=== PATIENT | female | born 1950 | race Caucasian/White ===

== ENCOUNTER 2019-04-22 16:32 | Inpatient (IN) | payer MEDICARE, MEDICAID ==
[2019-04-22 17:04] LABS: ADD MAN DIFF? NO
[2019-04-22] MEDS: KETOROLAC 15 MG INJ IV (17:06)
[2019-04-22] MEDS: ONDANSETRON 4 MG INJ IV (17:06)
[2019-04-22] MEDS: SOD CHLORIDE 0.9% 1,000 ML IV ×2 (17:06→22:29)
[2019-04-22 17:08] LABS: WHITE BLOOD COUNT 13.6 10^3/ul (4.8-10.8)
[2019-04-22 17:08] LABS: BASOPHILS % 0.3 % (0.0-2.0); EOSINOPHILS % 0.1 % (0.0-7.0); HEMATOCRIT 36.1 % (37.0-47.0); HEMOGLOBIN 11.4 g/dl (12.0-16.0); LYMPHOCYTES # 4.2 10^3/ul (0.8-2.9); LYMPHOCYTES % 30.7 % (15.0-51.0); MEAN CORPUSCULAR HEMOGLOBIN 26.4 pg (29.0-33.0); MEAN CORPUSCULAR HGB CONC 31.6 g/dl (32.0-37.0); MEAN CORPUSCULAR VOLUME 83.6 fl (82.0-101.0); MEAN PLATELET VOLUME 10.4 fl (7.4-10.4); MONOCYTE # 0.6 10^3/ul (0.3-0.9); MONOCYTES % 4.6 % (0.0-11.0); NEUTROPHIL # 8.7 10^3/ul (1.6-7.5); NEUTROPHILS % 63.9 % (39.0-77.0); PLATELET COUNT 122 10^3/UL (140-415); RED BLOOD COUNT 4.32 10^6/ul (4.20-5.40)
[2019-04-22 17:28] LABS: ALANINE AMINOTRANSFERASE 23 IU/L (13-69); ALBUMIN 3.9 g/dl (3.3-4.9); ALBUMIN/GLOBULIN RATIO 1.11; ALKALINE PHOSPHATASE 70 IU/L (42-121); ANION GAP 10 (5-13); ASPARTATE AMINO TRANSFERASE 29 IU/L (15-46); BILIRUBIN,INDIRECT 0.7 mg/dl (0-1.1); BILIRUBIN,TOTAL 0.7 mg/dl (0.2-1.3); BLOOD UREA NITROGEN 15 mg/dl (7-20); CALCIUM 8.6 mg/dl (8.4-10.2); CARBON DIOXIDE 25 mmol/L (21-31); CHLORIDE 101 mmol/L (97-110); CREATININE 0.78 mg/dl (0.44-1.00); Estimated GFR > 60 mL/min (>60); GLUCOSE 246 mg/dl (70-220); LIPASE 57 U/L (23-300); POTASSIUM 4.1 mmol/L (3.5-5.1); SODIUM 136 mmol/L (135-144); TOTAL PROTEIN 7.4 g/dl (6.1-8.1)
[2019-04-22] MEDS: CEFTRIAXONE 1 GM/50 ML (PMX) 50 ML IVPB (18:10)
[2019-04-22 19:17] LABS: ADD UMIC YES; UR ASCORBIC ACID 40 mg/dL (NEGATIVE); UR BILIRUBIN (Dip) NEGATIVE (NEGATIVE); UR BLOOD (Dip) 1+ mg/dL (NEGATIVE); UR CLARITY CLOUDY (CLEAR); UR COLOR YELLOW (YELLOW); UR GLUCOSE (Dip) NEGATIVE (NEGATIVE); UR KETONES (Dip) 1+ mg/dL (NEGATIVE); UR LEUKOCYTE ESTERASE (Dip) 3+ Leu/ul (NEGATIVE); UR NITRITE (Dip) POSITIVE (NEGATIVE); UR RBC 1 /HPF (0-5); UR SPECIFIC GRAVITY (Dip) 1.011 (1.003-1.030); UR TOTAL PROTEIN (Dip) 2+ mg/dl (NEGATIVE); UR UROBILINOGEN (Dip) NEGATIVE (NEGATIVE); UR WBC 10 /HPF (0-5)
[2019-04-22] MEDS ORDERED: NACL 0.9% 3 ML SYG IV (22:30)
[2019-04-22] MEDS ORDERED: ALBUTEROL 0.083% (NEB) 2.5 MG/3 ML AMP NEB (22:30)
[2019-04-22] MEDS ORDERED: HYDROCODONE/APAP (5/325) TAB PO (22:30)
[2019-04-22] MEDS ORDERED: ONDANSETRON 4 MG INJ IV (22:30)
[2019-04-23] MEDS: HYDROCODONE/APAP (5/325) TAB PO (02:36)
[2019-04-23] MEDS: ACETAMINOPHEN 325 MG TAB PO ×3 (02:40→21:40)
[2019-04-23 05:33] LABS: ABNORMAL IP MESSAGE 1; HEMATOCRIT 32.3 % (37.0-47.0); HEMOGLOBIN 10.1 g/dl (12.0-16.0); MEAN CORPUSCULAR HEMOGLOBIN 26.6 pg (29.0-33.0); MEAN CORPUSCULAR HGB CONC 31.3 g/dl (32.0-37.0); MEAN CORPUSCULAR VOLUME 85.2 fl (82.0-101.0); MEAN PLATELET VOLUME 10.7 fl (7.4-10.4); PLATELET COUNT 121 10^3/UL (140-415); RED BLOOD COUNT 3.79 10^6/ul (4.20-5.40); RED CELL DISTRIBUTION WIDTH 14.9 % (11.5-14.5)
[2019-04-23 05:33] LABS: WHITE BLOOD COUNT 15.5 10^3/ul (4.8-10.8)
[2019-04-23 05:43] LABS: HEMOGLOBIN A1C 6.5 % (0-5.9)
[2019-04-23 06:00] LABS: ALANINE AMINOTRANSFERASE 25 IU/L (13-69); ALBUMIN/GLOBULIN RATIO 1.03; ALKALINE PHOSPHATASE 49 IU/L (42-121); ANION GAP 6 (5-13); ASPARTATE AMINO TRANSFERASE 25 IU/L (15-46); BILIRUBIN,INDIRECT 0.4 mg/dl (0-1.1); BILIRUBIN,TOTAL 0.4 mg/dl (0.2-1.3); BLOOD UREA NITROGEN 15 mg/dl (7-20); CALCIUM 7.7 mg/dl (8.4-10.2); CARBON DIOXIDE 26 mmol/L (21-31); CHLORIDE 106 mmol/L (97-110); CREATININE 0.69 mg/dl (0.44-1.00); Estimated GFR > 60 mL/min (>60); GLUCOSE 118 mg/dl (70-220); MAGNESIUM 1.8 mg/dl (1.7-2.5); PHOSPHORUS 3.2 mg/dl (2.5-4.9); POTASSIUM 4.1 mmol/L (3.5-5.1); SODIUM 138 mmol/L (135-144); TOTAL PROTEIN 5.9 g/dl (6.1-8.1)
[2019-04-23 06:13] LABS: POSITIVE DIFF @See below
[2019-04-23 06:14] LABS: ADD MAN DIFF? YES
[2019-04-23 06:19] LABS: THYROID STIMULATING HORMONE 0.354 MIU/L (0.465-4.680)
[2019-04-23] MEDS ORDERED: VANCOMYCIN IV PER PHARMACY XX (07:00)
[2019-04-23] MEDS: LEVOTHYROXINE 100 MCG TAB PO (07:28)
[2019-04-23] MEDS: SOD CHLORIDE 0.9% 1,000 ML IV ×2 (08:08→18:05)
[2019-04-23] MEDS: ACCU-CHEK XX ×4 (09:00→21:00)
[2019-04-23] MEDS ORDERED: CEFTRIAXONE 1 GM/50 ML (PMX) 50 ML IVPB (09:00)
[2019-04-23] MEDS: metFORMIN 500 MG TAB PO ×2 (09:12→17:33)
[2019-04-23] MEDS: HEPARIN 5,000 UNIT/1 ML VIAL SC ×2 (09:13→21:16)
[2019-04-23 10:25] LABS: ANISOCYTOSIS 2+ (0-0); BAND NEUTROPHILS #M 1.2 10^3/ul (0.0-0.6); BAND NEUTROPHILS % (M) 8 % (0-4); BURR CELLS 1+ (0-0); LYMPHOCYTES #M 8.2 10^3/ul (0.8-2.9); LYMPHOCYTES % (M) 53 % (15-51); MICROCYTOSIS 2+ (0-0); MONOCYTE #M 0.4 10^3/ul (0.3-0.9); MONOCYTES % (M) 3 % (0-11); PLATELET ESTIMATE DECREASED; POIKILOCYTOSIS 1+ (0-0); POLYCHROMASIA 1+ (0-0); SEG NEUT #M 5.8 10^3/ul (1.6-7.5); SEGMENTED NEUTROPHILS (M) % 36 % (39-77); SMUDGE%M 7 % (0-0)
[2019-04-23] MEDS: CEFEPIME 1GM/50 ML (PMX) 50 ML IVPB ×2 (10:43→21:07)
[2019-04-23] MEDS: VANCOMYCIN 1.5 GM/NS 250 ML 250 ML IVPB (13:32)
[2019-04-24] MEDS: SOD CHLORIDE 0.9% 1,000 ML IV (04:05)
[2019-04-24 05:18] LABS: ADD MAN DIFF? NO
[2019-04-24 05:29] LABS: BASOPHIL # 0.1 10^3/ul (0.0-0.1); BASOPHILS % 0.6 % (0.0-2.0); EOSINOPHILS # 0.1 10^3/ul (0.0-0.5); EOSINOPHILS % 1.4 % (0.0-7.0); HEMATOCRIT 31.6 % (37.0-47.0); HEMOGLOBIN 9.8 g/dl (12.0-16.0); LYMPHOCYTES % 56.9 % (15.0-51.0); MEAN CORPUSCULAR HEMOGLOBIN 26.3 pg (29.0-33.0); MEAN CORPUSCULAR VOLUME 84.9 fl (82.0-101.0); MEAN PLATELET VOLUME 10.3 fl (7.4-10.4); MONOCYTE # 0.4 10^3/ul (0.3-0.9); MONOCYTES % 4.4 % (0.0-11.0); NEUTROPHIL # 3.2 10^3/ul (1.6-7.5); NEUTROPHILS % 36.5 % (39.0-77.0); PLATELET COUNT 117 10^3/UL (140-415); RED BLOOD COUNT 3.72 10^6/ul (4.20-5.40)
[2019-04-24 05:29] LABS: WHITE BLOOD COUNT 8.7 10^3/ul (4.8-10.8)
[2019-04-24 05:53] LABS: ANION GAP 6 (5-13); BLOOD UREA NITROGEN 10 mg/dl (7-20); CALCIUM 7.4 mg/dl (8.4-10.2); CARBON DIOXIDE 26 mmol/L (21-31); CHLORIDE 109 mmol/L (97-110); CREATININE 0.63 mg/dl (0.44-1.00); Estimated GFR > 60 mL/min (>60); GLUCOSE 130 mg/dl (70-220); MAGNESIUM 1.9 mg/dl (1.7-2.5); PHOSPHORUS 2.8 mg/dl (2.5-4.9); POTASSIUM 3.9 mmol/L (3.5-5.1); SODIUM 141 mmol/L (135-144)
[2019-04-24 05:59] LABS: FREE T4 (FREE THYROXINE) 1.45 ng/dl (0.78-2.44)
[2019-04-24] MEDS: LEVOTHYROXINE 100 MCG TAB PO (06:20)
[2019-04-24] MEDS: ACCU-CHEK XX (08:30)
[2019-04-24] MEDS: HEPARIN 5,000 UNIT/1 ML VIAL SC (08:35)
[2019-04-24] MEDS: metFORMIN 500 MG TAB PO (08:35)
[2019-04-24] MEDS: CEFEPIME 1GM/50 ML (PMX) 50 ML IVPB (08:36)
== END 2019-04-24 12:35 | disposition home or self-care (01) ==
LOC: E/R 16:32 → MS1 20:07
DX: N10 Acute pyelonephritis (principal); I10 Essential (primary) hypertension; E03.9 Hypothyroidism, unspecified; E11.9 Type 2 diabetes mellitus without complications; Z79.4 Long term (current) use of insulin
CPT/HCPCS: 36415; 71045; 74176; 80048; 80053; 81001; 82962; 83036; 83690; 83735; 84100; 84439; 84443; 85025; 87040-91; 87086; 96374; 96375; 99285-25